=== PATIENT | male | born 1985 | race Two or more races ===

== ENCOUNTER 2020-08-26 01:49 | Emergency (ER) | payer SELFPAY ==
[~2020-08-26] VITALS: Ht 180.3 cm; Wt 81.6 kg
[2020-08-26 01:55] VITALS: BP 122/71
== END 2020-08-26 02:07 | disposition left against medical advice (07) ==
LOC: ER 01:49
DX: Z00.00 Encounter for general adult medical examination without abnormal findings (principal); Z53.21 Procedure and treatment not carried out due to patient leaving prior to being seen by health care provider